=== PATIENT | female | born 1985 | race Caucasian/White ===

== ENCOUNTER 2021-05-16 09:58 | Emergency (ER) | payer MEDICAID, OTHER ==
[~2021-05-16] VITALS: Ht 160 cm; Wt 111.6 kg
[~2021-05-16 09:58] MED LIST: ALBU18HF IH; AZIT250T14 PO; GUAI600T31 PO
[2021-05-16 10:08] VITALS: BP 150/113
--- NOTE | 2021-05-16 11:04 | ER.PDOC ---
General Chief Complaint: Skin Rash/Abscess Stated Complaint: ABSCESS Time seen by MD: 11:01 Source: patient Exam Limitations: no limitations History of Present Illness Initial Comments Skin rash on gluteus since yesterday. 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 Spots are tender to touch. No fever or chills. Severity: moderate Quality: painful Identified Cause: possibly Allergies: Coded Allergies: codeine (Verified Allergy, Unknown, 11/04/19) sulfamethoxazole (Verified Allergy, Unknown, 11/04/19) trimethoprim (Verified Allergy, Unknown, 11/04/19) Home Meds Active Scripts Guaifenesin (MUCINEX) 600 Mg Tablet.er, 1 TAB PO BID for cough for 10 Days, #20 TAB 0 Refills Prov:BENIGNO TELLEZ D DO 11/04/19 Azithromycin (AZITHROMYCIN) 250 Mg Tablet, 250 MG PO As directed, #6 TAB Prov:BENIGNO TELLEZ D DO 11/04/19 Albuterol Sulfate (VENTOLIN HFA) 18 Gm Hfa.aer.ad, 18 GM IH Q4 PRN for SHORTNESS OF BREATH, #1 CONTAINER Prov:NISHANTCANDACEBENIGNO D DO 11/04/19 Past Medical History Medical History: diabetes, high cholesterol, hypertension, other Surgical History: appendectomy, cholecystectomy Family History Significant Family History: no pertinent family hx Social History Smoking: non-smoker Alcohol Use: none Drug Use: none Constitutional: no symptoms reported EENTM: no symptoms reported Respiratory: no symptoms reported Cardiovascular: no symptoms reported Gastrointestinal: no symptoms reported Skin: see HPI All Other Systems: Reviewed and Negative Physical Exam General Appearance: alert, no distress Skin: tender indurated area (left gluteus), with erythema Location: other (gluteus) Character: erythematous With: warmth, tenderness, inflammation EENT: eyes nml inspection, lips/gums nml, pharynx nml Neck: trachea midline, no swelling Respiratory: no resp. distress, breath sounds nml CVS: reg. rate & rhythm, heart sounds nml Abdomen: non-tender, no organomegaly NEURO/PSYCH: oriented x 3, CN's nml as tested, motor nml, sensation nml, mood/affect nml Results/Orders Results/Orders Vital Signs Date Time Temp Pulse Resp B/P (MAP) Pulse Ox O2 Delivery O2 Flow Rate FiO2 05/16/21 10:08 98.3 80 18 150/113 (125) 97 Room Air 05/16/21 10:08 98.3 80 18 97 05/16/21 10:08 98.3 80 18 ER DEPART Departure Time of Disposition: 11:03 Disposition: 01 HOME / SELF CARE / HOMELESS Impression: Primary Impression: Cellulitis Condition: Stable Referrals: PCP,UNKNOWN (PCP) PRIMARY CARE PROVIDER Additional Instructions: Clindamycin Ibuprofen Follow-up with your PCP in 3 to 5 days Return to ED if worsening or concerns Duration or Time Spent with Pa: 10 min Problem Qualifiers Primary Impression: Cellulitis Site of cellulitis: buttock Qualified Codes: L03.317 - Cellulitis of buttock ADAM OBANDO MD May 16, 2021 11:04
== END 2021-05-16 11:15 | disposition home or self-care (01) ==
LOC: ER 09:58
DX: L03.317 Cellulitis of buttock (principal); I10 Essential (primary) hypertension; E78.00 Pure hypercholesterolemia, unspecified; E11.9 Type 2 diabetes mellitus without complications; Z79.899 Other long term (current) drug therapy; Z88.1 Allergy status to other antibiotic agents; Z88.2 Allergy status to sulfonamides; Z88.5 Allergy status to narcotic agent; Z90.49 Acquired absence of other specified parts of digestive tract
CPT/HCPCS: 99283